=== PATIENT | female | born 1930 | race Caucasian/White ===

== ENCOUNTER → 2016-12-05 | Outpatient (REF) | payer MEDICARE | LOC: M LAB REF 16:32 | PROVIDERS: ATTEND Internal Medicine | DX: M10.9 Gout, unspecified (principal) ==

== ENCOUNTER → 2018-12-30 | Outpatient (REF) | payer MEDICARE | LOC: M LAB REF 12:37 | PROVIDERS: ATTEND Physician Assistant Medical | DX: M10.9 Gout, unspecified (principal) ==

== ENCOUNTER 2019-03-27 21:37 | Emergency (ER) | payer MEDICARE ==
[~2019-03-27] VITALS: Ht 152.4 cm; Wt 71.8 kg
[2019-03-27] MEDS ORDERED: LOSA100T50 PO (21:48)
[2019-03-27] MEDS ORDERED: CAND32TA9 PO (21:48)
[2019-03-27] MEDS ORDERED: AMLO5TAB6 PO (21:48)
[2019-03-27 22:26] LABS: BASO % 0.4 % (0.0-1.0); EOS # 0.3 10^3/uL (0.0-0.5); EOS % 2.8 % (0.0-3.0); HEMATOCRIT 44.5 % (36.0-47.0); HEMOGLOBIN 14.6 g/dl (12.0-15.5); LYMPH # 3.2 10^3/uL (1.5-5.0); LYMPH % 28.3 % (24.0-44.0); MEAN CORPUSCULAR HEMOGLOBIN 29.7 pg (27.0-33.0); MEAN CORPUSCULAR HGB CONC 32.8 g/dl (32.0-36.5); MEAN CORPUSCULAR VOLUME 90.4 fl (80.0-96.0); MONO # 0.7 10^3/uL (0.0-0.8); MONO % 6.6 % (0.0-5.0); NEUTROPHILS # 6.9 10^3/uL (1.5-8.5); NEUTROPHILS % 61.4 % (36.0-66.0); PLATELET COUNT, AUTOMATED 315 10^3/uL (150-450); RED BLOOD COUNT 4.92 10^6/uL (4.00-5.40); WHITE BLOOD COUNT 11.3 10^3/uL (4.0-10.0)
[2019-03-27 22:33] LABS: BLOOD UREA NITROGEN 21 MG/DL (7-18); CARBON DIOXIDE LEVEL 30 MEQ/L (21-32); CHLORIDE LEVEL 104 MEQ/L (98-107); CPK CREATINE PHOSPHOKINASE 60 U/L (26-192); CREATININE FOR GFR 1.06 MG/DL (0.55-1.30); GLOMERULAR FILTRATION RATE 52.2 (>32); GLUCOSE, FASTING 111 MG/DL (70-100); MB/CK RELATIVE INDEX 3.33 (< OR =4); POTASSIUM SERUM 4.1 MEQ/L (3.5-5.1); SODIUM LEVEL 139 MEQ/L (136-145); TROPONIN I < 0.02 NG/ML (< 0.10)
[2019-03-27 22:59] VITALS: BP 196/91
[2019-03-27] MEDS ORDERED: hydroCHLOROthiazide 12.5 MG CAPSULE PO ONE (23:45)
[2019-03-27] MEDS ORDERED: HYDR12.55 PO (23:57)
--- NOTE | 2019-03-28 07:54 | ECGEPIP ---
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
--- NOTE | 2019-03-28 09:12 | REP ---
Portable chest x-ray: Semi-erect AP view. History: Chest pain. Findings: EKG monitoring electrodes overlie the chest. Mild cardiomegaly is observed. The lungs are well inflated and clear. The thoracic aorta is calcific and tortuous. Pulmonary vasculature is not increased. No significant bony abnormality is seen. Impression: Mild cardiomegaly. Otherwise no acute disease. Electronically Signed by Syd Coulter MD 03/28/2019 09:04 A
== END 2019-03-28 00:20 | disposition home or self-care (01) ==
LOC: M ED 21:37
DX: I10 Essential (primary) hypertension (principal); I45.9 Conduction disorder, unspecified; Z79.899 Other long term (current) drug therapy

== ENCOUNTER → 2019-04-27 | Outpatient (REF) | payer MEDICARE ==
[~2019-04-27] MED LIST: AMLO5TAB6 PO; CAND32TA9 PO; HYDR12.55 PO; LOSA100T50 PO
== END ==
LOC: M LAB REF 16:46
PROVIDERS: ATTEND Internal Medicine
DX: M10.9 Gout, unspecified (principal)

== ENCOUNTER → 2020-04-19 | Outpatient (REF) | payer MEDICARE ==
[~2020-04-19] MED LIST changes: +AMLO1TAB24 PO; -AMLO5TAB6 PO
== END ==
LOC: M LAB REF 16:37
PROVIDERS: ATTEND Internal Medicine
DX: M10.9 Gout, unspecified (principal)